=== PATIENT | female | born 1945 | race Caucasian/White ===

== ENCOUNTER 2021-02-19 13:03 | Outpatient (REF) | payer MEDICARE, BC, SELFPAY ==
--- NOTE | ~2021-02-19 | XR_ITS ---
EXAMINATION: XR CHEST CLINICAL INFORMATION: Cough. COMPARISON: None TECHNIQUE: 2 views of the chest were obtained. FINDINGS: No significant abnormality is noted involving the heart, lungs, mediastinum, bony thorax or soft tissues. XR/XR chest 2V IMPRESSION: Unremarkable chest exam
[2021-02-19 14:08] LABS: Hemoglobin 15.9 g/dl (12.0-16.0); Mean Corpuscular HGB Conc 32.4 g/dl (31.0-35.0); Mean Corpuscular Hemoglobin 29.3 pg (27.0-33.0); Mean Corpuscular Volume 90.2 fL (80-98); Mean Platelet Volume 10.5 fL (9.4-12.3); Platelet Count 275 X10*3/uL (160-400); Red Blood Count 5.43 X10*6/uL (4.20-5.50); Red Cell Distribution Width 15.3 % (11.0-16.0); White Blood Count 10.3 X10*3/uL (4.8-10.8)
[2021-02-19 14:20] LABS: Estimated Average Glucose 143 mg/dL; Hemoglobin A1c % 6.6 %
[2021-02-19 14:25] LABS: B Type Natriuretic Peptide 58 pg/mL (<100)
[2021-02-19 14:31] LABS: Alanine Aminotransferase 89 U/L (0-31); Albumin Level 3.9 g/dL (3.5-5.0); Alkaline Phosphatase 208 U/L (39-117); Anion Gap 12 (12-20); Aspartate Amino Transferase 64 U/L (5-31); Bilirubin Total 1.5 mg/dL (0.0-1.0); Blood Urea Nitrogen 9 mg/dL (9-16); Calcium 9.5 mg/dL (8.4-10.2); Carbon Dioxide 30 mmol/L (22-29); Chloride 103 mmol/L (96-108); Estimated Glomerular Filt Rate > 60; Glucose Fasting 113 mg/dL (60-99); Potassium 4.2 mmol/L (3.3-5.1); Sodium 141 mmol/L (135-145); Total Protein 7.6 g/dL (6.5-8.0)
[2021-02-19 14:53] LABS: Folate 11.4 ng/mL (> or = 4.0); Vitamin B12 386 pg/mL (200-900)
[2021-02-19 15:28] LABS: Erythrocyte Sedimentation Rate 57 MM/HR (0-20)
[2021-02-19 16:35] LABS: Glucose Urine UA NEG (NEG); Leukocyte Esterase Urine 1+ (NEG); Nitrite Urine NEG (NEG); Specific Gravity - Urine 1.015 (1.005-1.025); UACC Culture Trigger YES; Urine Blood NEG (NEG); Urine Ketones NEG (NEG); Urine Protein NEG (NEG-TRACE)
[2021-02-19 16:36] LABS: Appearance Urine CLEAR; Color Urine YELLOW
[2021-02-19 16:43] LABS: Bacteria Urine 1+ /LPF; RBC Urine 0 /HPF (0); Squamous Epithelial Cell Urine 1+ /LPF
== END 2021-02-19 13:04 | disposition home or self-care (01) ==
LOC: HO.HMGCX 13:03
PROVIDERS: PCP Internal Medicine; Visit Provider Internal Medicine
DX: E78.5 Hyperlipidemia, unspecified (principal); I10 Essential (primary) hypertension; R05 Cough; E53.8 Deficiency of other specified B group vitamins; T78.40XA Allergy, unspecified, initial encounter; R32 Unspecified urinary incontinence
CPT/HCPCS: 36415; 71046; 80053; 81001; 81003; 82607; 82746; 83036; 83880; 85027; 85652; 87086

== ENCOUNTER 2021-02-25 10:50 | Outpatient (REF) | payer MEDICARE, BC, SELFPAY | END 2021-02-25 10:51 | disposition home or self-care (01) | LOC: HO.HMGCX 10:50 | PROVIDERS: PCP Internal Medicine; Visit Provider Internal Medicine | DX: Z13.89 Encounter for screening for other disorder (principal) ==

== ENCOUNTER 2021-02-26 11:35 | Outpatient (REF) | payer MEDICARE, BC, SELFPAY ==
--- NOTE | ~2021-02-26 | US_ITS ---
EXAMINATION: US PELVIS LIMITED (BLADDER) CLINICAL INFORMATION: Urinary incontinence. COMPARISON: None TECHNIQUE: Real-time imaging of the bladder. Grayscale imaging and color Doppler are performed. FINDINGS: The bladder is distended symmetrically and shows no focal wall thickening or diverticulum or bladder calculus. No debris in the dependent lumen. Color Doppler shows bilateral ureteral jets at the bladder base as expected. No pelvic ascites. Prevoid bladder: 254 mL. Post void bladder residual volume: 7 mL. US/US bladder IMPRESSION: 1. No focal wall thickening, diverticulum, bladder calculus, or debris in the lumen. 2. Post void bladder residual volume 7 mL.
== END 2021-02-26 11:36 | disposition home or self-care (01) ==
LOC: HO.HMGCX 11:35
PROVIDERS: Visit Provider Internal Medicine
DX: R32 Unspecified urinary incontinence (principal); R26.89 Other abnormalities of gait and mobility
CPT/HCPCS: 76857

== ENCOUNTER 2021-02-28 09:56 | Outpatient (REF) | payer MEDICARE, BC, SELFPAY ==
--- NOTE | ~2021-02-28 | US_ITS ---
EXAMINATION: US ABDOMEN LIMITED CLINICAL INFORMATION: Elevated LFTs. COMPARISON: None TECHNIQUE: Real-time imaging of the right upper quadrant abdominal viscera. FINDINGS: PANCREAS: The pancreas is homogeneous in density without focal lesion. LIVER: The liver is normal in size. The liver contour is normal. There is mild increased hepatic echotexture. No focal hepatic lesion. There is no intrahepatic biliary duct dilatation seen. GALLBLADDER: There are multiple echogenic floating gallstones. The gallbladder is physiologically distended without evidence of polyps, wall thickening or pericholecystic fluid. COMMON BILE DUCT: Normal in caliber measuring 0.7 cm in diameter. There is echogenic sludge or small stones with sludge in the common bile duct. RIGHT KIDNEY: There are echogenic stones measuring 0.5 x 0.5 x 0.5 cm and 0.5 x 0.4 x 0.7 cm. There is no caliectasis or hydronephrosis. No focal parenchymal lesions seen. The kidney measures 10.6 cm in maximum dimension. FREE FLUID: None. US/US abdomen limited IMPRESSION: Small echogenic gallstones and mobile sludge. There is mobile sludge and echogenic stone seen in the common bile duct. 2 anechoic cyst in the right kidney. Mild hepatic steatosis.
== END 2021-02-28 09:57 | disposition home or self-care (01) ==
LOC: HO.HMGCX 09:56
PROVIDERS: PCP Internal Medicine; Visit Provider Internal Medicine
DX: R79.89 Other specified abnormal findings of blood chemistry (principal)
CPT/HCPCS: 76705

== ENCOUNTER 2023-11-22 10:32 | Outpatient (AMB) | payer MEDICARE, BC, SELFPAY ==
[2023-11-22 10:38] VITALS: BP 150/80; PULSE 98; TEMP 36.7; O2SAT 95; BMI 32.6
--- NOTE | 2023-11-22 10:38 | MHC.OFFWIV ---
Intake Vital Signs 11/22/23 10:38 Height 5 ft 2 in Weight 80.739 kg BMI 32.6 BP 150/80 H Blood Pressure Location Lt brachial Position Sitting Pulse 98 Pulse Source Pulse Oximeter Temp 98.0 F Temp Source Oral Pulse Oximetry (%) 95 Oxygen Delivery Method Room Air Intake Visit Reasons: EST/abscess right side face(lobby) Intake Note: pt is here for c/o abscess on right side of face, fell on tripped over dog bowl Patient Tobacco Use Status: Never used Tobacco Accompanied by: Son Allergies hydroxychloroquine [Plaquenil] Allergy (Unknown, Verified 11/22/23 10:41) unknown penicillin V Allergy (Unknown, Verified 11/22/23 10:41) unknown Sulfa (Sulfonamide Antibiotics) Allergy (Unknown, Verified 11/22/23 10:41) unknown Plaquenil Allergy (Unknown, Uncoded 02/26/21 12:50) unknown sulfa Allergy (Unknown, Uncoded 02/26/21 12:50) unknown Do you need a note to return to daycare/school/sports/work: No HPI HPI Comments History of Present Illness Details 1054 78 year old female presents w/ son status post fall on , patient reports she tripped over a dog bowl, landing on her left neck/mandible region, since then has been having pain, swelling to that area as well as vocal changes and some difficulty controlling secretions. She reports the left side of her face is very swollen and she thinks she may have an abscess. She does state that her voice sounds different. And there maybe something coming out of her mouth. Patient not on blood thinners. There was no loss of consciousness associated with fall. Patient here with son. Denies chest pain, shortness of breath, nausea, vomiting, abdominal pain, preceding symptoms to fall. Physical exam large indurated area in the left angle of the mandible extending into the left side of neck. Patient does appear to have a muffled voice. She is drooling on my examination. I explained to patient and son that she should go be seen at a emergency department as this may require intervention and further imaging. I am concerned for threat to airway. I explained to them she should go via ambulance. And her son responds I am not paying a 1000 dollars for somebody else to drive her , explained risks to patient, she states her son will bring her to [facility]. I did call in and expect to be expect number. Patient is expected at [facility]. She was saturating 95% on room air when she left. She understood risks of leaving. I did obtain consent to take pictures and place them in the medical record/chart. Please refer to physical exam portion of chart [facility] Medical History Gallstone of bile duct with obstruction COPD with chronic bronchitis Balance disorder Elevated LFTs Vitamin B12 deficiency Allergy Cough Urinary incontinence Osteoarthritis Hyperlipidemia HTN (hypertension) Rheumatoid arthritis Family History Father No problems noted. Mother No problems noted. Social History Alcohol intake: current Alcohol intake frequency: does not drink Patient Tobacco Use Status: Never used Tobacco Review of Systems Const All systems reviewed & are unremarkable except as noted in HPI and below Physical Exam Vital Signs: Last Vital Signs Temp 98.0 F 11/22/23 10:38 Pulse 98 11/22/23 10:38 BP 150/80 H 11/22/23 10:38 Pulse Ox 95 11/22/23 10:38 Oxygen Delivery Method Room Air 11/22/23 10:38 BMI result Body Mass Index 32.6 Vital signs stable Appearance: Alert.? Oriented X3.? No acute distress.? Head: Normocephalic, atraumatic, no step-offs or deformities.+ large indurated area in the left angle of the mandible extending into the left side of neck. Patient does appear to have a muffled voice. She is drooling on my examination. Eyes: Pupils equal, round and reactive to light.? ENT: Pharynx normal.? Neck: Normal inspection.? Neck supple.? CVS: Normal heart rate and rhythm.? Pulses normal.? Respiratory: No respiratory distress.? Breath sounds normal.? Skin: Skin warm and dry.? Normal skin color.? Normal skin turgor.? Extremities: No lower extremity edema.? No calf ttp. 5/5 strength to bilateral upper and lower extremities Neuro: Oriented X 3.? No motor deficit.? No sensory deficit. CN 2-12 intact Assessment & Plan Assessment & Plan (1) Fall: Code(s): W19.XXXA - Unspecified fall, initial encounter (2) Mandibular pain: Code(s): R68.84 - Jaw pain (3) Left against medical advice: Code(s): Z53.29 - Procedure and treatment not carried out because of patient's decision for other reasons Plan Expect called to [facility] Emergency Department. Patient and son refusing ambulance. Patient will go by private vehicle. Coding Level of Care Code Est Pt Level 3 (81382) Diagnoses Fall W19.XXXA Mandibular pain R68.84 Left against medical advice Z53.29
== END 2023-11-22 11:21 | disposition home or self-care (01) ==
PROVIDERS: PCP Internal Medicine; Visit Provider Physician Assistant
DX: R68.84 Jaw pain (principal); W19.XXXA Unspecified fall, initial encounter; Z53.29 Procedure and treatment not carried out because of patient's decision for other reasons
CPT/HCPCS: 99213